=== PATIENT | male | born 1935 | race Caucasian/White ===

== ENCOUNTER → 2016-08-24 | Outpatient (CLI) | payer MEDICARE ==
[~2016-08-24] MED LIST: ALLO100T PO; APIX2.5T PO; ASPI-983 PO; CALC0.253 PO; CARV6.25 PO; CHOL2000 PO; CLOP75TA69 PO; DILT240C90 PO; DOBU250I2 IV; FURO-124 PO; FURO40TA4 PO; FURO80TA83 PO; GABA-490 PO; GLIP10TA13 PO; HYDR-3923 PO; INSU100V5 SQ; ISM60TCR PO; MAGN400T39 PO; MELA5CAP PO; METO-333 PO; MULT-593 PO; NEBU1EAC10 MC; NEBU1EAC2 MC; PAMI30VI8 SQ; PANT40TA3 PO; SUCR1TAB PO
--- OUTSIDE RECORDS SUMMARY | 2016-08-24 15:08 | XMS REPORT | Continuity of Care Document ---
Author Author [facility] Organization [facility] Address Unknown Phone Unavailable Care Team Providers Care Director Insurance Name Role Phone DINORAH DELUCA MD PCP Insurance Providers Payer Name Policy Number Subscriber Name Relationship Wps Medicare [id number] Kunal Lyon 18 Self / Same As Patient [facility] [id number] Kunal Lyon 18 Self / Same As Patient Advance Directives Directive Response Recorded Date/Time Advance Directives No 07/01/16 8:15pm Health Care Power of Apprentice Machinist Outside Y daughter alejandra chau 07/01/16 8:15pm Resuscitation Status Full Code 07/01/16 8:15pm Chief Complaint and Reason for Visit Chief Complaint Respiratory Problems Reason for Visit Heart failure Sepsis Pneumonia Problems Active Problems Medical Problem Onset Date Status Acute on chronic renal failure Unknown Acute Atrial fibrillation with RVR Unknown Acute Chronic obstructive airway disease Unknown Acute Congestive heart failure Unknown Acute Fluid overload Unknown Acute Heart failure Unknown Acute Hypokalemia Unknown Acute Pneumonia Unknown Acute Respiratory failure Unknown Acute Right lower lobe pneumonia Unknown Acute Sepsis Unknown Acute Severe sepsis Unknown Acute Medications Current Home Medications Medication Dose Units Route Directions Days/Qty Instructions Start Date Gabapentin 400 Mg 400 Mg Oral Bedtime 05/02/16 Magnesium Oxide 400 Mg 400 Mg Oral Daily 05/02/16 Pantoprazole Sodium 40 Mg 40 Mg Oral Twice A Day 05/02/16 Allopurinol 100 Mg 200 Mg Oral Daily 05/02/16 Multivitamin With Minerals 1 Each 1 Tab Oral Daily 05/02/16 Melatonin 5 Mg 3 Mg Oral Bedtime as needed for Sleep 05/02/16 Sucralfate 1 Gm 1 Gm Oral Before Meals 05/02/16 Metoprolol Tartrate 25 Mg 50 Mg Oral Twice A Day 60 05/07/16 Aspirin 81 Mg 81 Mg Oral Daily 30 05/07/16 Insulin Lispro 100 Unit/1 Ml Unknown Dose Sub-Q 07/01/16 Carvedilol 6.25 Mg 6.25 Mg Oral Twice A Day 07/01/16 Dobutamine Hcl/D5w 250 Mg/250 Ml Unknown Dose Intraven Continuous 07/01/16 Furosemide 40 Mg 40 Mg Oral Daily 07/01/16 Cholecalciferol (Vitamin D3) 2,000 Unit 2,000 Unit Oral Daily Calcitriol 0.25 Mcg 0.25 Mcg Oral Daily 07/01/16 Clopidogrel Bisulfate 75 Mg 75 Mg Oral Daily 07/01/16 Isosorbide Mononitrate (Imdur) 60 Mg 60 Mg Oral Daily 07/01/16 Hydralazine Hcl 25 Mg 25 Mg Oral Three Times A Day 07/01/16 Furosemide 80 Mg 80 Mg Oral Daily 07/01/16 Past Home Medications Medication Directions Ordered Status Glipizide 10 Mg Tablet, 10 Mg Oral Daily 05/02/16 Discontinued Insulin Determir 1,000 Units/10 Ml Soln, 32 Units Sub-Q Daily 05/02/16 Discontinued Furosemide 40 Mg Tablet, 40 Mg Oral Daily 05/02/16 Discontinued Apixaban 2.5 Mg Tablet, 2.5 Mg Oral Twice A Day 05/07/16 Discontinued Diltiazem Hcl 240 Mg Cap.er.24h, 240 Mg Oral Daily 05/07/16 Discontinued Social History Social History Problem Response Recorded Date/Time Alcohol Use Denies Use 07/01/2016 8:15pm Recreational Drug Use No 07/01/2016 8:15pm Recent Foreign Travel No 07/01/2016 8:15pm Recent Infectious Disease Exposure No 07/01/2016 8:15pm Sexually Transmitted Disease No 07/01/2016 8:15pm HIV/AIDS No 07/01/2016 8:15pm Smoking Status Former Smoker 07/01/2016 8:15pm Type Used Cigarettes 07/01/2016 8:15pm Recent Hopitalizations RELEASED FROM [place] ON 06/28/16 07/01/2016 8:15pm Sexually Transmitted Disease No 07/01/2016 8:15pm Query Response Start Date Stop Date Smoking Status Former Smoker Hospital Discharge Instructions No hospital discharge instructions. Plan of Care Discharge Date 07/01/16 10:50pm Disposition 02 XFER SHT-TRM HOSP Condition at Discharge Critical Prescriptions See Medication Section Referrals DINORAH DELUCA MD - Primary Care Physician Functional Status No functional status results. Allergies, Adverse Reactions, Alerts No known allergies. Immunizations No immunization records. Vital Signs Acute Vital Signs Vital Response Date/Time Temperature (Fahrenheit) 100.7 degrees F (97.6 - 99.5) 07/01/2016 8:52pm Temperature (Calculated Celsius) 38.64508 degrees C (36.4 - 37.5) 07/01/2016 8:52pm Temperature Source Tympanic 07/01/2016 8:52pm Pulse Rate (adult) 123 bpm (60 - 90) 07/01/2016 8:15pm Respiratory Rate 20 bpm (12 - 24) 07/01/2016 8:15pm O2 Sat by Pulse Oximetry 92 % (88 - 100) 07/01/2016 9:07pm Blood Pressure 134/67 mm Hg 07/01/2016 8:15pm Blood Pressure Mean 89 mm Hg 07/01/2016 8:15pm Pain Numeric Pain Scale 0-No Pain 07/01/2016 8:15pm Height (Feet) 5 feet 07/01/2016 8:15pm Height (Inches) 8 inches 07/01/2016 8:15pm Height (Calculated Centimeters) 172.966956 cm 07/01/2016 8:15pm Weight (Pounds) 175 pounds 07/01/2016 8:15pm Weight (Ounces) 0.0 oz 06/10/2016 4:45pm Weight (Calculated Grams) 60703.63 gm 06/10/2016 4:45pm Weight (Calculated Kilograms) 79.510150 kilograms 07/01/2016 8:15pm Calculated BMI 27.4 06/10/2016 4:45pm Capillary Refill Capillary Refill Less Than 3 Seconds 07/01/2016 8:15pm Results Laboratory Results Test Name Result Units Flags Reference Collection Date/Time Result Date/ Time Comments White Blood Count 6.1 10^3/uL 4.3-11.0 06/10/2016 1:21pm 06/10/2016 1: 48pm Red Blood Count 2.82 10^6/uL L 4.35-5.85 06/10/2016 1:pm 06/10/2016 1: 48pm Hemoglobin 6.7 G/DL CL 13.3-17.7 06/10/2016 1:pm 06/10/2016 1:48pm RESULTS CALLED TO TERESA RN AT 'S OFFICE AT 6847. RESULTS READ BACK: YES. Hematocrit 23 % L 40-54 06/10/2016 1:06/10/2016 1:48pm Mean Corpuscular Volume 81 FL 80-99 06/10/2016 1:pm 06/10/2016 1: 48pm Mean Corpuscular Hemoglobin 24 PG L 25-34 06/10/2016 1:pm 06/10/2016 1: 48pm Mean Corpuscular Hemoglobin Concent 29 G/DL L 32-36 06/10/2016 1:pm 1:48pm Red Cell Distribution Width 17.3 % H 10.0-14.5 06/10/2016 1:2015 1:48pm Platelet Count 222 10^3/uL 130-400 06/10/2016 1:06/10/2016 1:48pm Mean Platelet Volume 11.3 FL H 7.4-10.4 06/10/2016 1:pm 06/10/2016 1: 48pm Neutrophils (%) (Auto) 64 % 42-75 06/10/2016 1:06/10/2016 1:48pm Lymphocytes (%) (Auto) 17 % 12-44 06/10/2016 1:06/10/2016 1:48pm Monocytes (%) (Auto) 16 % H 0-12 06/10/2016 1:pm 06/10/2016 1:48pm Eosinophils (%) (Auto) 3 % 0-10 06/10/2016 1:pm 06/10/2016 1:48pm Basophils (%) (Auto) 1 % 0-10 06/10/2016 1:pm 06/10/2016 1:48pm Neutrophils # (Auto) 3.9 X 10^3 1.8-7.8 06/10/2016 1:pm 06/10/2016 1: 48pm Lymphocytes # (Auto) 1.0 X 10^3 1.0-4.0 06/10/2016 1:06/10/2016 1: 48pm Monocytes # (Auto) 1.0 X 10^3 0.0-1.0 06/10/2016 1:21pm 06/10/2016 1: 48pm Eosinophils # (Auto) 0.2 10^3/uL 0.0-0.3 06/10/2016 1:pm 06/10/2016 1 :48pm Basophils # (Auto) 0.1 10^3/uL 0.0-0.1 06/10/2016 1:pm 06/10/2016 1: 48pm Urine Color YELLOW 06/10/2016 1:pm 06/10/2016 1:44pm Urine Clarity SLIGHTLY CLOUDY 06/10/2016 1:pm 06/10/2016 1:44pm Urine pH 6 5-9 06/10/2016 1:pm 06/10/2016 1:44pm Urine Specific [place] 1.020 1.016-1.022 06/10/2016 1:pm 2015 1:44pm Urine Protein NEGATIVE NEGATIVE 06/10/2016 1:pm 06/10/2016 1:44pm Urine Glucose (UA) NEGATIVE NEGATIVE 06/10/2016 1:pm 06/10/2016 1: 44pm Urine RBC (Auto) NEGATIVE NEGATIVE 06/10/2016 1:pm 06/10/2016 1: 44pm Urine Ketones NEGATIVE NEGATIVE 06/10/2016 1:pm 06/10/2016 1:44pm Urine Nitrite NEGATIVE NEGATIVE 06/10/2016 1:pm 06/10/2016 1:44pm Urine Bilirubin NEGATIVE NEGATIVE 06/10/2016 1:pm 06/10/2016 1: 44pm Urine Urobilinogen NORMAL MG/DL NORMAL 06/10/2016 1:pm 06/10/2016 1: 44pm Urine Leukocyte Esterase NEGATIVE NEGATIVE 06/10/2016 1:pm 2015 1:44pm Urine RBC NONE /HPF 06/10/2016 1:pm 06/10/2016 1:44pm Urine WBC NONE /HPF 06/10/2016 1:pm 06/10/2016 1:44pm Urine Bacteria NEGATIVE /HPF 06/10/2016 1:pm 06/10/2016 1:44pm Urine Squamous Epithelial Cells 0-2 /HPF 06/10/2016 1:2015 1:44pm Urine Crystals NONE /LPF 06/10/2016 1:06/10/2016 1:44pm Urine Casts PRESENT /LPF 06/10/2016 1:06/10/2016 1:44pm Urine Hyaline Casts 5-10 /LPF * 06/10/2016 1:06/10/2016 1:44pm Urine Mucus NEGATIVE /LPF 06/10/2016 1:06/10/2016 1:44pm Urine Culture Indicated NO 06/10/2016 1:06/10/2016 1:44pm Urine Protein 14 MG/DL H 6-12 06/10/2016 1:06/10/2016 1:50pm Urine Creatinine 111 MG/DL 30-125 06/10/2016 1:06/10/2016 1:50pm Urine Protein/Creatinine Ratio 0.13 06/10/2016 1:06/10/2016 1: 50pm Sodium Level 139 MMOL/L 135-145 06/10/2016 1:06/10/2016 1:48pm Potassium Level 3.5 MMOL/L L 3.6-5.0 06/10/2016 1:06/10/2016 1:48pm Chloride Level 100 MMOL/L 98-107 06/10/2016 1:06/10/2016 1:48pm Carbon Dioxide Level 29 MMOL/L 21-32 06/10/2016 1:06/10/2016 1: 48pm Anion Gap 10 MMOL/L 5-14 06/10/2016 1:06/10/2016 1:48pm Blood Urea Nitrogen 45 MG/DL H 7-18 06/10/2016 1:06/10/2016 1:48pm Creatinine 2.56 MG/DL H 0.60-1.30 06/10/2016 1:06/10/2016 1:48pm BUN/Creatinine Ratio 18 06/10/2016 1:06/10/2016 1:48pm Estimat Glomerular Filtration Rate 24 06/10/2016 1:06/10/2016 1:48pm GFR INTERPRETIVE DATA UNITS FOR ESTIMATED GFR (eGFR): mL/min/1.73 M2 REFERENCE RANGE FOR ESTIMATED GFR (eGFR) eGFR NORMAL eGFR >60 MODERATELY DECREASED eGFR 30-59 SEVERLY DECREASED eGFR 15-29 KIDNEY FAILURE <15 (OR DIALYSIS) Glucose Level 122 MG/DL H 70-105 06/10/2016 1:21pm 06/10/2016 1:48pm Calcium Level 8.8 MG/DL 8.5-10.1 06/10/2016 1:21pm 06/10/2016 1:48pm Phosphorus Level 3.0 MG/DL 2.3-4.7 06/10/2016 1:21pm 06/10/2016 1:48pm Albumin 3.4 G/DL 3.2-4.5 06/10/2016 1:21pm 06/10/2016 1:48pm Pending Laboratory Results Test Name Collection Date/Time Procedures Procedure Status Date Provider(s) Tracing only of electrocardiogram Active 07/01/16 CANDE CORNEJO MD Encounters Encounter Location Arrival/Admit Date Discharge/Depart Date Attending Provider Departed Emergency Room [facility] 07/01/16 8:11pm 07/01 10:50pm CANDE CORNEJO MD Registered Clinic [facility] 06/22/16 6:38pm DIMPLE ESPINOZA MD Discharged Inpatient (obs) [facility] 06/10/16 4:25pm 9:00pm DINORAH DELUCA MD Registered Clinic [facility] 06/10/16 11:20am GEOFFREY PERALES DO Recent Diagnosis
[2016-08-24 15:18] LABS: BASOPHILS # (AUTO) 0.1 10^3/uL (0.0-0.1); BASOPHILS % (AUTO) 1 % (0-10); EOSINOPHILS # (AUTO) 0.7 10^3/uL (0.0-0.3); EOSINOPHILS % (AUTO) 10 % (0-10); LYMPHOCYTES # (AUTO) 1.3 X 10^3 (1.0-4.0); LYMPHOCYTES % (AUTO) 18 % (12-44); MEAN CORPUSCULAR HEMOGLOBIN 24 PG (25-34); MEAN CORPUSCULAR HGB CONC 29 G/DL (32-36); MEAN CORPUSCULAR VOLUME 82 FL (80-99); MEAN PLATELET VOLUME 9.9 FL (7.4-10.4); MONOCYTES # (AUTO) 0.8 X 10^3 (0.0-1.0); MONOCYTES % (AUTO) 11 % (0-12); NEUTROPHILS # (AUTO) 4.3 X 10^3 (1.8-7.8); NEUTROPHILS % (AUTO) 60 % (42-75); PLATELET COUNT 298 10^3/uL (130-400); RED CELL DISTRIBUTION WIDTH 19.5 % (10.0-14.5); WHITE BLOOD COUNT 7.2 10^3/uL (4.3-11.0)
[2016-08-24 15:19] LABS: BILIRUBIN,URINE NEGATIVE (NEGATIVE); KETONES,URINE NEGATIVE (NEGATIVE); LEUKOCYTE ESTERASE ,URINE 3+ (NEGATIVE); NITRITE,URINE NEGATIVE (NEGATIVE); PH,URINE 5 (5-9); PROTEIN,URINE 2+ (NEGATIVE); UROBILINOGEN,URINE NORMAL (NORMAL)
[2016-08-24 15:28] LABS: WBC,URINE TNTC /HPF
[2016-08-24 15:39] LABS: PROTEIN/CREATININE RATIO 0.51
[2016-08-24 15:39] LABS: ALBUMIN 3.9 G/DL (3.2-4.5); CALCIUM 9.1 MG/DL (8.5-10.1); CREATININE SERUM 2.81 MG/DL (0.60-1.30); PHOSPHORUS 3.2 MG/DL (2.3-4.7); POTASSIUM 3.1 MMOL/L (3.6-5.0); URIC ACID 11.9 MG/DL (2.6-7.2)
[2016-08-25 07:59] LABS: CALCIUM PARA THYROID HORMONE 9.1 mg/dL (8.5-10.5)
== END ==
LOC: HH 15:03
PROVIDERS: ATTEND Internal Medicine Nephrology
DX: N17.8 Other acute kidney failure (principal); J90 Pleural effusion, not elsewhere classified; E11.29 Type 2 diabetes mellitus with other diabetic kidney complication; N18.4 Chronic kidney disease, stage 4 (severe)
CPT/HCPCS: 80069; 81000; 82570; 83970; 84156; 84550; 85025; 87077; 87088; 87186

== ENCOUNTER → 2016-09-08 | Outpatient (CLI) | payer MEDICARE ==
--- OUTSIDE RECORDS SUMMARY | 2016-09-08 16:06 | XMS REPORT | Continuity of Care Document ---
Author Author [facility] Organization [facility] Address Unknown Phone Unavailable Care Team Providers Care Building Trades Instructor Name Role Phone DINORAH DELUCA MD PCP Insurance Providers Payer Name Policy Number Subscriber Name Relationship Wps Medicare [id number] Kunal Lyon 18 Self / Same As Patient [facility] [id number] Kunal Lyon 18 Self / Same As Patient Advance Directives Directive Response Recorded Date/Time Advance Directives No 07/01/16 8:15pm Health Care Power of Finance Vice President Y daughter alejandra chau 07/01/16 8:15pm Resuscitation [...] Cigarettes 07/01/2016 8:15pm Recent Hopitalizations RELEASED FROM [place] ON 06/28/16 07/01/2016 8:15pm Sexually Transmitted Disease [...] - 99.5) 07/01/2016 8:52pm Temperature (Calculated Celsius) 38.75158 degrees C (36.4 - 37.5) 07/01/2016 8:52pm [...] 8 inches 07/01/2016 8:15pm Height (Calculated Centimeters) 172.184357 cm 07/01/2016 8:15pm Weight (Pounds) 175 pounds 07/01/2016 8:15pm Weight (Ounces) 0.0 oz 06/10/2016 4:45pm Weight (Calculated Grams) 40448.63 gm 06/10/2016 4:45pm Weight (Calculated Kilograms) 79.095868 kilograms 07/01/2016 8:15pm Calculated BMI 27.4 06/10/2016 [...] TO TERESA RN AT 'S OFFICE AT 5776. RESULTS READ BACK: YES. Hematocrit 23 % [...] 5-9 06/10/2016 1:pm 06/10/2016 1:44pm Urine Specific [place] 1.020 1.016-1.022 06/10/2016 1:pm 2015 1:44pm Urine [...] Date Attending Provider Departed Emergency Room [facility] 07/01/16 8:11pm 07/01 10:50pm CANDE CORNEJO MD Registered Clinic [facility] 06/22/16 6:38pm DIMPLE ESPINOZA MD Discharged Inpatient (obs) [facility] 06/10/16 4:25pm 9:00pm DINORAH DELUCA MD Registered Clinic [facility] 06/10/16 11:20am GEOFFREY PERALES DO Recent Diagnosis
[2016-09-08 16:07] LABS: BASOPHILS # (AUTO) 0.1 10^3/uL (0.0-0.1); BASOPHILS % (AUTO) 1 % (0-10); EOSINOPHILS # (AUTO) 0.6 10^3/uL (0.0-0.3); EOSINOPHILS % (AUTO) 9 % (0-10); LYMPHOCYTES # (AUTO) 1.2 X 10^3 (1.0-4.0); LYMPHOCYTES % (AUTO) 17 % (12-44); MEAN CORPUSCULAR HEMOGLOBIN 23 PG (25-34); MEAN CORPUSCULAR HGB CONC 29 G/DL (32-36); MEAN CORPUSCULAR VOLUME 81 FL (80-99); MEAN PLATELET VOLUME 10.3 FL (7.4-10.4); MONOCYTES # (AUTO) 0.9 X 10^3 (0.0-1.0); MONOCYTES % (AUTO) 12 % (0-12); NEUTROPHILS # (AUTO) 4.4 X 10^3 (1.8-7.8); NEUTROPHILS % (AUTO) 62 % (42-75); PLATELET COUNT 320 10^3/uL (130-400); RED BLOOD COUNT 3.52 10^6/uL (4.35-5.85); RED CELL DISTRIBUTION WIDTH 17.7 % (10.0-14.5); WHITE BLOOD COUNT 7.2 10^3/uL (4.3-11.0)
[2016-09-08 16:22] LABS: ALBUMIN 3.5 G/DL (3.2-4.5); CALCIUM 8.8 MG/DL (8.5-10.1); CREATININE SERUM 3.11 MG/DL (0.60-1.30); PHOSPHORUS 3.4 MG/DL (2.3-4.7); POTASSIUM 3.7 MMOL/L (3.6-5.0)
== END ==
LOC: HH 16:03
PROVIDERS: ATTEND Internal Medicine Nephrology
DX: N18.3 Chronic kidney disease, stage 3 (moderate) (principal); D64.9 Anemia, unspecified
CPT/HCPCS: 80069; 85025

== ENCOUNTER → 2016-09-15 | Outpatient (CLI) | payer MEDICARE ==
--- OUTSIDE RECORDS SUMMARY | 2016-09-15 16:41 | XMS REPORT | Continuity of Care Document ---
Author Author [facility] Organization [facility] Address Unknown Phone Unavailable Care Team Providers Care Mortgage Closing Clerk Name Role Phone DINORAH DELUCA MD PCP Insurance Providers Payer Name Policy Number Subscriber Name Relationship Wps Medicare [id number] Kunal Lyon 18 Self / Same As Patient [facility] [id number] Kunal Lyon 18 Self / Same As Patient Advance Directives Directive Response Recorded Date/Time Advance Directives No 07/01/16 8:15pm Health Care Power of Dowel Inspector Y daughter alejandra chau 07/01/16 8:15pm Resuscitation [...] Cigarettes 07/01/2016 8:15pm Recent Hopitalizations RELEASED FROM [place] ON 06/28/16 07/01/2016 8:15pm Sexually Transmitted Disease [...] - 99.5) 07/01/2016 8:52pm Temperature (Calculated Celsius) 38.39088 degrees C (36.4 - 37.5) 07/01/2016 8:52pm [...] 8 inches 07/01/2016 8:15pm Height (Calculated Centimeters) 172.224575 cm 07/01/2016 8:15pm Weight (Pounds) 175 pounds 07/01/2016 8:15pm Weight (Ounces) 0.0 oz 06/10/2016 4:45pm Weight (Calculated Grams) 69525.63 gm 06/10/2016 4:45pm Weight (Calculated Kilograms) 79.281452 kilograms 07/01/2016 8:15pm Calculated BMI 27.4 06/10/2016 [...] TO TERESA RN AT 'S OFFICE AT 1149. RESULTS READ BACK: YES. Hematocrit 23 % [...] 5-9 06/10/2016 1:pm 06/10/2016 1:44pm Urine Specific [place] 1.020 1.016-1.022 06/10/2016 1:pm 2015 1:44pm Urine [...] Date Attending Provider Departed Emergency Room [facility] 07/01/16 8:11pm 07/01 10:50pm CANDE CORNEJO MD Registered Clinic [facility] 06/22/16 6:38pm DIMPLE ESPINOZA MD Discharged Inpatient (obs) [facility] 06/10/16 4:25pm 9:00pm DINORAH DELUCA MD Registered Clinic [facility] 06/10/16 11:20am GEOFFREY PERALES DO Recent Diagnosis
[2016-09-15 16:42] LABS: BASOPHILS # (AUTO) 0.1 10^3/uL (0.0-0.1); BASOPHILS % (AUTO) 1 % (0-10); EOSINOPHILS # (AUTO) 0.4 10^3/uL (0.0-0.3); EOSINOPHILS % (AUTO) 6 % (0-10); LYMPHOCYTES # (AUTO) 1.3 X 10^3 (1.0-4.0); LYMPHOCYTES % (AUTO) 20 % (12-44); MEAN CORPUSCULAR HEMOGLOBIN 23 PG (25-34); MEAN CORPUSCULAR HGB CONC 29 G/DL (32-36); MEAN CORPUSCULAR VOLUME 79 FL (80-99); MONOCYTES # (AUTO) 0.9 X 10^3 (0.0-1.0); MONOCYTES % (AUTO) 14 % (0-12); NEUTROPHILS # (AUTO) 3.7 X 10^3 (1.8-7.8); NEUTROPHILS % (AUTO) 58 % (42-75); PLATELET COUNT 265 10^3/uL (130-400); RED BLOOD COUNT 3.63 10^6/uL (4.35-5.85); RED CELL DISTRIBUTION WIDTH 17.4 % (10.0-14.5); WHITE BLOOD COUNT 6.4 10^3/uL (4.3-11.0)
[2016-09-15 16:59] LABS: CALCIUM 8.9 MG/DL (8.5-10.1); CREATININE SERUM 3.27 MG/DL (0.60-1.30); POTASSIUM 3.9 MMOL/L (3.6-5.0)
== END ==
LOC: LABNPT 16:36
PROVIDERS: ATTEND Internal Medicine Cardiovascular Disease
DX: N17.9 Acute kidney failure, unspecified (principal); J90 Pleural effusion, not elsewhere classified; E11.22 Type 2 diabetes mellitus with diabetic chronic kidney disease; N18.4 Chronic kidney disease, stage 4 (severe)
CPT/HCPCS: 80048; 85025

== ENCOUNTER → 2016-09-22 | Outpatient (CLI) | payer MEDICARE ==
--- OUTSIDE RECORDS SUMMARY | 2016-09-22 15:57 | XMS REPORT | Continuity of Care Document ---
Author Author [facility] Organization [facility] Address Unknown Phone Unavailable Care Team Providers Care Risk Consulting Treasury Director Name Role Phone DINORAH DELUCA MD PCP Insurance Providers Payer Name Policy Number Subscriber Name Relationship Wps Medicare [id number] Kunal Lyon 18 Self / Same As Patient [facility] [id number] Kunal Lyon 18 Self / Same As Patient Advance Directives Directive Response Recorded Date/Time Advance Directives No 07/01/16 8:15pm Health Care Power of Wellness Ambassador Y daughter alejandra chau 07/01/16 8:15pm Resuscitation [...] Cigarettes 07/01/2016 8:15pm Recent Hopitalizations RELEASED FROM [place] ON 06/28/16 07/01/2016 8:15pm Sexually Transmitted Disease [...] - 99.5) 07/01/2016 8:52pm Temperature (Calculated Celsius) 38.92491 degrees C (36.4 - 37.5) 07/01/2016 8:52pm [...] 8 inches 07/01/2016 8:15pm Height (Calculated Centimeters) 172.877888 cm 07/01/2016 8:15pm Weight (Pounds) 175 pounds 07/01/2016 8:15pm Weight (Ounces) 0.0 oz 06/10/2016 4:45pm Weight (Calculated Grams) 35879.63 gm 06/10/2016 4:45pm Weight (Calculated Kilograms) 79.005764 kilograms 07/01/2016 8:15pm Calculated BMI 27.4 06/10/2016 [...] TO TERESA RN AT 'S OFFICE AT 2151. RESULTS READ BACK: YES. Hematocrit 23 % [...] 5-9 06/10/2016 1:pm 06/10/2016 1:44pm Urine Specific [place] 1.020 1.016-1.022 06/10/2016 1:pm 2015 1:44pm Urine [...] Date Attending Provider Departed Emergency Room [facility] 07/01/16 8:11pm 07/01 10:50pm CANDE CORNEJO MD Registered Clinic [facility] 06/22/16 6:38pm DIMPLE ESPINOZA MD Discharged Inpatient (obs) [facility] 06/10/16 4:25pm 9:00pm DINORAH DELUCA MD Registered Clinic [facility] 06/10/16 11:20am GEOFFREY PERALES DO Recent Diagnosis
[2016-09-22 16:02] LABS: BASOPHILS # (AUTO) 0.1 10^3/uL (0.0-0.1); BASOPHILS % (AUTO) 2 % (0-10); EOSINOPHILS # (AUTO) 0.5 10^3/uL (0.0-0.3); EOSINOPHILS % (AUTO) 9 % (0-10); LYMPHOCYTES # (AUTO) 1.1 X 10^3 (1.0-4.0); LYMPHOCYTES % (AUTO) 18 % (12-44); MEAN CORPUSCULAR HEMOGLOBIN 23 PG (25-34); MEAN CORPUSCULAR HGB CONC 29 G/DL (32-36); MEAN CORPUSCULAR VOLUME 79 FL (80-99); MEAN PLATELET VOLUME 10.1 FL (7.4-10.4); MONOCYTES # (AUTO) 0.6 X 10^3 (0.0-1.0); MONOCYTES % (AUTO) 10 % (0-12); NEUTROPHILS # (AUTO) 3.8 X 10^3 (1.8-7.8); NEUTROPHILS % (AUTO) 62 % (42-75); PLATELET COUNT 266 10^3/uL (130-400); RED BLOOD COUNT 3.73 10^6/uL (4.35-5.85); RED CELL DISTRIBUTION WIDTH 16.7 % (10.0-14.5)
[2016-09-22 16:24] LABS: ALBUMIN 3.7 G/DL (3.2-4.5); BILIRUBIN,TOTAL 0.3 MG/DL (0.1-1.0); CALCIUM 9.1 MG/DL (8.5-10.1); CREATININE SERUM 3.18 MG/DL (0.60-1.30); POTASSIUM 4.3 MMOL/L (3.6-5.0); TOTAL PROTEIN 5.9 G/DL (6.4-8.2)
== END ==
LOC: LABNPT 15:20
PROVIDERS: ATTEND Family Medicine
DX: I13.0 Hypertensive heart and chronic kidney disease with heart failure and stage 1 through stage 4 chronic kidney disease, or unspecified chronic kidney disease (principal); I50.9 Heart failure, unspecified; N18.9 Chronic kidney disease, unspecified
CPT/HCPCS: 80053; 85025

== ENCOUNTER → 2016-10-04 | Outpatient (CLI) | payer MEDICARE ==
[2016-10-04 16:09] LABS: BASOPHILS # (AUTO) 0.1 10^3/uL (0.0-0.1); BASOPHILS % (AUTO) 2 % (0-10); EOSINOPHILS # (AUTO) 0.3 10^3/uL (0.0-0.3); EOSINOPHILS % (AUTO) 6 % (0-10); LYMPHOCYTES # (AUTO) 1.1 X 10^3 (1.0-4.0); LYMPHOCYTES % (AUTO) 20 % (12-44); MEAN CORPUSCULAR HEMOGLOBIN 22 PG (25-34); MEAN CORPUSCULAR HGB CONC 28 G/DL (32-36); MEAN CORPUSCULAR VOLUME 78 FL (80-99); MEAN PLATELET VOLUME 10.2 FL (7.4-10.4); MONOCYTES # (AUTO) 0.9 X 10^3 (0.0-1.0); MONOCYTES % (AUTO) 18 % (0-12); NEUTROPHILS % (AUTO) 55 % (42-75); PLATELET COUNT 259 10^3/uL (130-400); RED BLOOD COUNT 3.42 10^6/uL (4.35-5.85); RED CELL DISTRIBUTION WIDTH 16.9 % (10.0-14.5); WHITE BLOOD COUNT 5.4 10^3/uL (4.3-11.0)
--- OUTSIDE RECORDS SUMMARY | 2016-10-04 16:09 | XMS REPORT | Continuity of Care Document ---
Author Author [facility] Organization [facility] Address Unknown Phone Unavailable Care Team Providers Care Risk Control Consultant Name Role Phone DINORAH DELUCA MD PCP Insurance Providers Payer Name Policy Number Subscriber Name Relationship Wps Medicare [id number] Kunal Lyon 18 Self / Same As Patient [facility] [id number] Kunal Lyon 18 Self / Same As Patient Advance Directives Directive Response Recorded Date/Time Advance Directives No 07/01/16 8:15pm Health Care Power of Manager Physical Y daughter alejandra chau 07/01/16 8:15pm Resuscitation [...] Cigarettes 07/01/2016 8:15pm Recent Hopitalizations RELEASED FROM [place] ON 06/28/16 07/01/2016 8:15pm Sexually Transmitted Disease [...] - 99.5) 07/01/2016 8:52pm Temperature (Calculated Celsius) 38.66365 degrees C (36.4 - 37.5) 07/01/2016 8:52pm [...] 8 inches 07/01/2016 8:15pm Height (Calculated Centimeters) 172.417476 cm 07/01/2016 8:15pm Weight (Pounds) 175 pounds 07/01/2016 8:15pm Weight (Ounces) 0.0 oz 06/10/2016 4:45pm Weight (Calculated Grams) 12045.63 gm 06/10/2016 4:45pm Weight (Calculated Kilograms) 79.233960 kilograms 07/01/2016 8:15pm Calculated BMI 27.4 06/10/2016 [...] TO TERESA RN AT 'S OFFICE AT 0926. RESULTS READ BACK: YES. Hematocrit 23 % [...] 5-9 06/10/2016 1:pm 06/10/2016 1:44pm Urine Specific [place] 1.020 1.016-1.022 06/10/2016 1:pm 2015 1:44pm Urine [...] Date Attending Provider Departed Emergency Room [facility] 07/01/16 8:11pm 07/01 10:50pm CANDE CORNEJO MD Registered Clinic [facility] 06/22/16 6:38pm DIMPLE ESPINOZA MD Discharged Inpatient (obs) [facility] 06/10/16 4:25pm 9:00pm DINORAH DELUCA MD Registered Clinic [facility] 06/10/16 11:20am GEOFFREY PERALES DO Recent Diagnosis
[2016-10-04 16:26] LABS: ALBUMIN 3.6 G/DL (3.2-4.5); BILIRUBIN,TOTAL 0.3 MG/DL (0.1-1.0); CALCIUM 8.9 MG/DL (8.5-10.1); CREATININE SERUM 3.27 MG/DL (0.60-1.30); POTASSIUM 5.4 MMOL/L (3.6-5.0); TOTAL PROTEIN 5.8 G/DL (6.4-8.2)
== END ==
LOC: HH 16:05
PROVIDERS: ATTEND Internal Medicine Cardiovascular Disease
DX: I50.9 Heart failure, unspecified (principal)
CPT/HCPCS: 80053; 85025

== ENCOUNTER → 2016-10-11 | Outpatient (CLI) | payer MEDICARE ==
--- OUTSIDE RECORDS SUMMARY | 2016-10-11 12:26 | XMS REPORT | Continuity of Care Document ---
Author Author [facility] Organization [facility] Address Unknown Phone Unavailable Care Team Providers Care Kennel Staff Member Name Role Phone DINORAH DELUCA MD PCP Insurance Providers Payer Name Policy Number Subscriber Name Relationship Wps Medicare [id number] Kunal Lyon 18 Self / Same As Patient [facility] [id number] Kunal Lyon 18 Self / Same As Patient Advance Directives Directive Response Recorded Date/Time Advance Directives No 07/01/16 8:15pm Health Care Power of Full Stack Net Developer Y daughter alejandra chau 07/01/16 8:15pm Resuscitation [...] Cigarettes 07/01/2016 8:15pm Recent Hopitalizations RELEASED FROM [place] ON 06/28/16 07/01/2016 8:15pm Sexually Transmitted Disease [...] - 99.5) 07/01/2016 8:52pm Temperature (Calculated Celsius) 38.56082 degrees C (36.4 - 37.5) 07/01/2016 8:52pm [...] 8 inches 07/01/2016 8:15pm Height (Calculated Centimeters) 172.533802 cm 07/01/2016 8:15pm Weight (Pounds) 175 pounds 07/01/2016 8:15pm Weight (Ounces) 0.0 oz 06/10/2016 4:45pm Weight (Calculated Grams) 32182.63 gm 06/10/2016 4:45pm Weight (Calculated Kilograms) 79.094890 kilograms 07/01/2016 8:15pm Calculated BMI 27.4 06/10/2016 [...] TO TERESA RN AT 'S OFFICE AT 3466. RESULTS READ BACK: YES. Hematocrit 23 % [...] 5-9 06/10/2016 1:pm 06/10/2016 1:44pm Urine Specific [place] 1.020 1.016-1.022 06/10/2016 1:pm 2015 1:44pm Urine [...] Date Attending Provider Departed Emergency Room [facility] 07/01/16 8:11pm 07/01 10:50pm CANDE CORNEJO MD Registered Clinic [facility] 06/22/16 6:38pm DIMPLE ESPINOZA MD Discharged Inpatient (obs) [facility] 06/10/16 4:25pm 9:00pm DINORAH DELUCA MD Registered Clinic [facility] 06/10/16 11:20am GEOFFREY PERALES DO Recent Diagnosis
[2016-10-11 12:43] LABS: MEAN PLATELET VOLUME 9.7 FL (7.4-10.4); RED BLOOD COUNT 3.91 10^6/uL (4.35-5.85); RED CELL DISTRIBUTION WIDTH 18.2 % (10.0-14.5); WHITE BLOOD COUNT 5.1 10^3/uL (4.3-11.0)
[2016-10-11 12:50] LABS: ALBUMIN 3.5 G/DL (3.2-4.5); CALCIUM 8.6 MG/DL (8.5-10.1); CREATININE SERUM 2.64 MG/DL (0.60-1.30); PHOSPHORUS 3.4 MG/DL (2.3-4.7); POTASSIUM 4.9 MMOL/L (3.6-5.0)
== END ==
LOC: HH 12:23
PROVIDERS: ATTEND Internal Medicine Nephrology
DX: N18.4 Chronic kidney disease, stage 4 (severe) (principal); D64.9 Anemia, unspecified
CPT/HCPCS: 80069; 85027

== ENCOUNTER → 2016-10-11 | Outpatient (CLI) | payer MEDICARE ==
--- OUTSIDE RECORDS SUMMARY | 2016-10-11 16:48 | XMS REPORT | Continuity of Care Document ---
Author Author [facility] Organization [facility] Address Unknown Phone Unavailable Care Team Providers Care Rn Heart Name Role Phone DINORAH DELUCA MD PCP Insurance Providers Payer Name Policy Number Subscriber Name Relationship Wps Medicare [id number] Kunal Lyon 18 Self / Same As Patient [facility] [id number] Kunal Lyon 18 Self / Same As Patient Advance Directives Directive Response Recorded Date/Time Advance Directives No 07/01/16 8:15pm Health Care Power of Cancer Program Consultant Y daughter alejandra chau 07/01/16 8:15pm Resuscitation [...] Cigarettes 07/01/2016 8:15pm Recent Hopitalizations RELEASED FROM [place] ON 06/28/16 07/01/2016 8:15pm Sexually Transmitted Disease [...] - 99.5) 07/01/2016 8:52pm Temperature (Calculated Celsius) 38.75493 degrees C (36.4 - 37.5) 07/01/2016 8:52pm [...] 8 inches 07/01/2016 8:15pm Height (Calculated Centimeters) 172.981165 cm 07/01/2016 8:15pm Weight (Pounds) 175 pounds 07/01/2016 8:15pm Weight (Ounces) 0.0 oz 06/10/2016 4:45pm Weight (Calculated Grams) 93060.63 gm 06/10/2016 4:45pm Weight (Calculated Kilograms) 79.105475 kilograms 07/01/2016 8:15pm Calculated BMI 27.4 06/10/2016 [...] TO TERESA RN AT 'S OFFICE AT 9042. RESULTS READ BACK: YES. Hematocrit 23 % [...] 5-9 06/10/2016 1:pm 06/10/2016 1:44pm Urine Specific [place] 1.020 1.016-1.022 06/10/2016 1:pm 2015 1:44pm Urine [...] Date Attending Provider Departed Emergency Room [facility] 07/01/16 8:11pm 07/01 10:50pm CANDE CORNEJO MD Registered Clinic [facility] 06/22/16 6:38pm DIMPLE ESPINOZA MD Discharged Inpatient (obs) [facility] 06/10/16 4:25pm 9:00pm DINORAH DELUCA MD Registered Clinic [facility] 06/10/16 11:20am GEOFFREY PERALES DO Recent Diagnosis
== END ==
LOC: HH 16:44
PROVIDERS: ATTEND Family Medicine
DX: K92.1 Melena (principal)
CPT/HCPCS: 82274

== ENCOUNTER → 2016-10-18 | Outpatient (CLI) | payer MEDICARE ==
--- OUTSIDE RECORDS SUMMARY | 2016-10-18 12:32 | XMS REPORT | Continuity of Care Document ---
Author Author [facility] Organization [facility] Address Unknown Phone Unavailable Care Team Providers Care Television Audio Engineer Name Role Phone DINORAH DELUCA MD PCP Insurance Providers Payer Name Policy Number Subscriber Name Relationship Wps Medicare [id number] Kunal Lyon 18 Self / Same As Patient [facility] [id number] Kunal Lyon 18 Self / Same As Patient Advance Directives Directive Response Recorded Date/Time Advance Directives No 07/01/16 8:15pm Health Care Power of Food Analyst Y daughter alejandra chau 07/01/16 8:15pm Resuscitation [...] Cigarettes 07/01/2016 8:15pm Recent Hopitalizations RELEASED FROM [place] ON 06/28/16 07/01/2016 8:15pm Sexually Transmitted Disease [...] - 99.5) 07/01/2016 8:52pm Temperature (Calculated Celsius) 38.74300 degrees C (36.4 - 37.5) 07/01/2016 8:52pm [...] 8 inches 07/01/2016 8:15pm Height (Calculated Centimeters) 172.646783 cm 07/01/2016 8:15pm Weight (Pounds) 175 pounds 07/01/2016 8:15pm Weight (Ounces) 0.0 oz 06/10/2016 4:45pm Weight (Calculated Grams) 95404.63 gm 06/10/2016 4:45pm Weight (Calculated Kilograms) 79.128040 kilograms 07/01/2016 8:15pm Calculated BMI 27.4 06/10/2016 [...] TO TERESA RN AT 'S OFFICE AT 2374. RESULTS READ BACK: YES. Hematocrit 23 % [...] 5-9 06/10/2016 1:pm 06/10/2016 1:44pm Urine Specific [place] 1.020 1.016-1.022 06/10/2016 1:pm 2015 1:44pm Urine [...] Date Attending Provider Departed Emergency Room [facility] 07/01/16 8:11pm 07/01 10:50pm CANDE CORNEJO MD Registered Clinic [facility] 06/22/16 6:38pm DIMPLE ESPINOZA MD Discharged Inpatient (obs) [facility] 06/10/16 4:25pm 9:00pm DINORAH DELUCA MD Registered Clinic [facility] 06/10/16 11:20am GEOFFREY PERALES DO Recent Diagnosis
[2016-10-18 12:50] LABS: BASOPHILS # (AUTO) 0.1 10^3/uL (0.0-0.1); BASOPHILS % (AUTO) 1 % (0-10); EOSINOPHILS # (AUTO) 0.3 10^3/uL (0.0-0.3); EOSINOPHILS % (AUTO) 6 % (0-10); LYMPHOCYTES # (AUTO) 0.9 X 10^3 (1.0-4.0); LYMPHOCYTES % (AUTO) 22 % (12-44); MEAN CORPUSCULAR HEMOGLOBIN 22 PG (25-34); MEAN CORPUSCULAR HGB CONC 28 G/DL (32-36); MEAN CORPUSCULAR VOLUME 79 FL (80-99); MEAN PLATELET VOLUME 10.2 FL (7.4-10.4); MONOCYTES # (AUTO) 0.7 X 10^3 (0.0-1.0); MONOCYTES % (AUTO) 16 % (0-12); NEUTROPHILS # (AUTO) 2.4 X 10^3 (1.8-7.8); NEUTROPHILS % (AUTO) 55 % (42-75); PLATELET COUNT 205 10^3/uL (130-400); RED BLOOD COUNT 3.99 10^6/uL (4.35-5.85); RED CELL DISTRIBUTION WIDTH 18.9 % (10.0-14.5); WHITE BLOOD COUNT 4.3 10^3/uL (4.3-11.0)
[2016-10-18 12:58] LABS: ALBUMIN 3.5 G/DL (3.2-4.5); CALCIUM 8.6 MG/DL (8.5-10.1); CREATININE SERUM 3.11 MG/DL (0.60-1.30); PHOSPHORUS 4.2 MG/DL (2.3-4.7); POTASSIUM 3.7 MMOL/L (3.6-5.0)
== END ==
LOC: HH 11:40
PROVIDERS: ATTEND Internal Medicine Nephrology
DX: D64.9 Anemia, unspecified (principal); N19 Unspecified kidney failure
CPT/HCPCS: 80069; 85025

== ENCOUNTER → 2016-10-25 | Outpatient (CLI) | payer MEDICARE ==
[2016-10-25 11:37] LABS: BASOPHILS # (AUTO) 0.1 10^3/uL (0.0-0.1); BASOPHILS % (AUTO) 1 % (0-10); EOSINOPHILS # (AUTO) 0.3 10^3/uL (0.0-0.3); EOSINOPHILS % (AUTO) 6 % (0-10); LYMPHOCYTES # (AUTO) 0.8 X 10^3 (1.0-4.0); LYMPHOCYTES % (AUTO) 17 % (12-44); MEAN CORPUSCULAR HEMOGLOBIN 22 PG (25-34); MEAN CORPUSCULAR HGB CONC 28 G/DL (32-36); MEAN CORPUSCULAR VOLUME 79 FL (80-99); MEAN PLATELET VOLUME 10.1 FL (7.4-10.4); MONOCYTES # (AUTO) 0.8 X 10^3 (0.0-1.0); MONOCYTES % (AUTO) 17 % (0-12); NEUTROPHILS % (AUTO) 60 % (42-75); PLATELET COUNT 190 10^3/uL (130-400); RED BLOOD COUNT 4.06 10^6/uL (4.35-5.85); RED CELL DISTRIBUTION WIDTH 18.7 % (10.0-14.5)
--- OUTSIDE RECORDS SUMMARY | 2016-10-25 11:37 | XMS REPORT | Continuity of Care Document ---
Author Author [facility] Organization [facility] Address Unknown Phone Unavailable Care Team Providers Care Panel Wirer Name Role Phone DINORAH DELUCA MD PCP Insurance Providers Payer Name Policy Number Subscriber Name Relationship [employer] [id number] Kunal Lyon 18 Self / Same As Patient [facility] [id number] Kunal Lyon 18 Self / Same As Patient Advance Directives Directive Response Recorded Date/Time Advance Directives No 07/01/16 8:15pm Health Care Power of Home Hospice Rn Y daughter alejandra chau 07/01/16 8:15pm Resuscitation [...] Cigarettes 07/01/2016 8:15pm Recent Hopitalizations RELEASED FROM [facility] ON 06/28/16 07/01/2016 8:15pm Sexually Transmitted Disease [...] - 99.5) 07/01/2016 8:52pm Temperature (Calculated Celsius) 38.40911 degrees C (36.4 - 37.5) 07/01/2016 8:52pm [...] 8 inches 07/01/2016 8:15pm Height (Calculated Centimeters) 172.653787 cm 07/01/2016 8:15pm Weight (Pounds) 175 pounds 07/01/2016 8:15pm Weight (Ounces) 0.0 oz 06/10/2016 4:45pm Weight (Calculated Grams) 45305.63 gm 06/10/2016 4:45pm Weight (Calculated Kilograms) 79.167199 kilograms 07/01/2016 8:15pm Calculated BMI 27.4 06/10/2016 [...] TO TERESA RN AT 'S OFFICE AT 4174. RESULTS READ BACK: YES. Hematocrit 23 % [...] 5-9 06/10/2016 1:pm 06/10/2016 1:44pm Urine Specific [place] 1.020 1.016-1.022 06/10/2016 1:pm 2015 1:44pm Urine [...] Date Attending Provider Departed Emergency Room [facility] 07/01/16 8:11pm 07/01 10:50pm CANDE CORNEJO MD Registered Clinic [facility] 06/22/16 6:38pm DIMPLE ESPINOZA MD Discharged Inpatient (obs) [facility] 06/10/16 4:25pm 9:00pm DINORAH DELUCA MD Registered Clinic [facility] 06/10/16 11:20am GEOFFREY PERALES DO Recent Diagnosis
[2016-10-25 11:46] LABS: ALBUMIN 3.4 G/DL (3.2-4.5); CALCIUM 8.9 MG/DL (8.5-10.1); CREATININE SERUM 2.79 MG/DL (0.60-1.30); PHOSPHORUS 3.3 MG/DL (2.3-4.7); POTASSIUM 3.4 MMOL/L (3.6-5.0)
== END ==
LOC: HH 11:34
PROVIDERS: ATTEND Internal Medicine Nephrology
DX: D64.9 Anemia, unspecified (principal); N19 Unspecified kidney failure
CPT/HCPCS: 80069; 85025

== ENCOUNTER → 2016-11-03 | Outpatient (CLI) | payer MEDICARE ==
--- OUTSIDE RECORDS SUMMARY | 2016-11-03 14:48 | XMS REPORT | Continuity of Care Document ---
Author Author [facility] Organization [facility] Address Unknown Phone Unavailable Care Team Providers Care Ophthalmology Assistant Name Role Phone DINORAH DELUCA MD PCP Insurance Providers Payer Name Policy Number Subscriber Name Relationship [employer] [id number] Kunal Lyon 18 Self / Same As Patient [facility] [id number] Kunal Lyon 18 Self / Same As Patient Advance Directives Directive Response Recorded Date/Time Advance Directives No 07/01/16 8:15pm Health Care Power of Support Technician Y daughter alejandra chau 07/01/16 8:15pm Resuscitation [...] Cigarettes 07/01/2016 8:15pm Recent Hopitalizations RELEASED FROM [place] ON 06/28/16 07/01/2016 8:15pm Sexually Transmitted Disease [...] - 99.5) 07/01/2016 8:52pm Temperature (Calculated Celsius) 38.73882 degrees C (36.4 - 37.5) 07/01/2016 8:52pm [...] 8 inches 07/01/2016 8:15pm Height (Calculated Centimeters) 172.495511 cm 07/01/2016 8:15pm Weight (Pounds) 175 pounds 07/01/2016 8:15pm Weight (Ounces) 0.0 oz 06/10/2016 4:45pm Weight (Calculated Grams) 69950.63 gm 06/10/2016 4:45pm Weight (Calculated Kilograms) 79.056880 kilograms 07/01/2016 8:15pm Calculated BMI 27.4 06/10/2016 [...] TO TERESA RN AT 'S OFFICE AT 9687. RESULTS READ BACK: YES. Hematocrit 23 % [...] 5-9 06/10/2016 1:pm 06/10/2016 1:44pm Urine Specific [place] 1.020 1.016-1.022 06/10/2016 1:pm 2015 1:44pm Urine [...] Date Attending Provider Departed Emergency Room [facility] 07/01/16 8:11pm 07/01 10:50pm CANDE CORNEJO MD Registered Clinic [facility] 06/22/16 6:38pm DIMPLE ESPINOZA MD Discharged Inpatient (obs) [facility] 06/10/16 4:25pm 9:00pm DINORAH DELUCA MD Registered Clinic [facility] 06/10/16 11:20am GEOFFREY PERALES DO Recent Diagnosis
[2016-11-03 14:50] LABS: BASOPHILS # (AUTO) 0.1 10^3/uL (0.0-0.1); BASOPHILS % (AUTO) 1 % (0-10); EOSINOPHILS # (AUTO) 0.4 10^3/uL (0.0-0.3); EOSINOPHILS % (AUTO) 7 % (0-10); LYMPHOCYTES # (AUTO) 1.4 X 10^3 (1.0-4.0); LYMPHOCYTES % (AUTO) 23 % (12-44); MEAN CORPUSCULAR HEMOGLOBIN 22 PG (25-34); MEAN CORPUSCULAR HGB CONC 28 G/DL (32-36); MEAN CORPUSCULAR VOLUME 78 FL (80-99); MEAN PLATELET VOLUME 9.9 FL (7.4-10.4); MONOCYTES # (AUTO) 0.8 X 10^3 (0.0-1.0); MONOCYTES % (AUTO) 14 % (0-12); NEUTROPHILS # (AUTO) 3.3 X 10^3 (1.8-7.8); NEUTROPHILS % (AUTO) 56 % (42-75); PLATELET COUNT 196 10^3/uL (130-400); RED BLOOD COUNT 4.25 10^6/uL (4.35-5.85); RED CELL DISTRIBUTION WIDTH 19.8 % (10.0-14.5); WHITE BLOOD COUNT 5.9 10^3/uL (4.3-11.0)
[2016-11-03 15:07] LABS: ALBUMIN 3.7 G/DL (3.2-4.5); CALCIUM 8.8 MG/DL (8.5-10.1); CREATININE SERUM 3.06 MG/DL (0.60-1.30); PHOSPHORUS 3.5 MG/DL (2.3-4.7); POTASSIUM 2.9 MMOL/L (3.6-5.0)
== END ==
LOC: HH 14:43
PROVIDERS: ATTEND Internal Medicine Nephrology
DX: N18.4 Chronic kidney disease, stage 4 (severe) (principal)
CPT/HCPCS: 80069; 85025

== ENCOUNTER → 2016-11-10 | Outpatient (CLI) | payer MEDICARE ==
[2016-11-10 15:22] LABS: BASOPHILS # (AUTO) 0.1 10^3/uL (0.0-0.1); BASOPHILS % (AUTO) 1 % (0-10); EOSINOPHILS # (AUTO) 0.4 10^3/uL (0.0-0.3); EOSINOPHILS % (AUTO) 7 % (0-10); LYMPHOCYTES # (AUTO) 1.1 X 10^3 (1.0-4.0); LYMPHOCYTES % (AUTO) 20 % (12-44); MEAN CORPUSCULAR HEMOGLOBIN 23 PG (25-34); MEAN CORPUSCULAR HGB CONC 29 G/DL (32-36); MEAN CORPUSCULAR VOLUME 80 FL (80-99); MEAN PLATELET VOLUME 10.1 FL (7.4-10.4); MONOCYTES # (AUTO) 0.7 X 10^3 (0.0-1.0); MONOCYTES % (AUTO) 12 % (0-12); NEUTROPHILS # (AUTO) 3.2 X 10^3 (1.8-7.8); NEUTROPHILS % (AUTO) 60 % (42-75); PLATELET COUNT 225 10^3/uL (130-400); RED BLOOD COUNT 3.82 10^6/uL (4.35-5.85); RED CELL DISTRIBUTION WIDTH 20.2 % (10.0-14.5); WHITE BLOOD COUNT 5.4 10^3/uL (4.3-11.0)
[2016-11-10 15:44] LABS: ALBUMIN 3.5 G/DL (3.2-4.5); CALCIUM 8.6 MG/DL (8.5-10.1); CREATININE SERUM 2.99 MG/DL (0.60-1.30); MAGNESIUM 1.9 MG/DL (1.8-2.4); PHOSPHORUS 3.5 MG/DL (2.3-4.7); POTASSIUM 3.1 MMOL/L (3.6-5.0)
== END ==
LOC: HH 15:15
PROVIDERS: ATTEND Internal Medicine Nephrology
DX: N18.4 Chronic kidney disease, stage 4 (severe) (principal); E87.6 Hypokalemia; D64.9 Anemia, unspecified
CPT/HCPCS: 80069; 83735; 85025

== ENCOUNTER → 2016-11-16 | Outpatient (CLI) | payer MEDICARE ==
[2016-11-16 17:40] LABS: BILIRUBIN,URINE NEGATIVE (NEGATIVE); KETONES,URINE NEGATIVE (NEGATIVE); LEUKOCYTE ESTERASE ,URINE 3+ (NEGATIVE); NITRITE,URINE NEGATIVE (NEGATIVE); PH,URINE 7 (5-9); PROTEIN,URINE 3+ (NEGATIVE); UROBILINOGEN,URINE NORMAL (NORMAL)
[2016-11-16 17:56] LABS: WBC,URINE TNTC /HPF
== END ==
LOC: HH 17:32
PROVIDERS: ATTEND Family Medicine
DX: N18.9 Chronic kidney disease, unspecified (principal)
CPT/HCPCS: 81000; 87088

== ENCOUNTER → 2016-11-29 | Outpatient (CLI) | payer MEDICARE ==
[2016-11-29 14:56] LABS: BASOPHILS # (AUTO) 0.1 10^3/uL (0.0-0.1); BASOPHILS % (AUTO) 1 % (0-10); EOSINOPHILS # (AUTO) 0.4 10^3/uL (0.0-0.3); EOSINOPHILS % (AUTO) 6 % (0-10); LYMPHOCYTES # (AUTO) 1.4 X 10^3 (1.0-4.0); LYMPHOCYTES % (AUTO) 20 % (12-44); MEAN CORPUSCULAR HEMOGLOBIN 22 PG (25-34); MEAN CORPUSCULAR HGB CONC 27 G/DL (32-36); MEAN CORPUSCULAR VOLUME 79 FL (80-99); MEAN PLATELET VOLUME 9.9 FL (7.4-10.4); MONOCYTES # (AUTO) 0.7 X 10^3 (0.0-1.0); MONOCYTES % (AUTO) 10 % (0-12); NEUTROPHILS # (AUTO) 4.3 X 10^3 (1.8-7.8); NEUTROPHILS % (AUTO) 62 % (42-75); PLATELET COUNT 190 10^3/uL (130-400); RED BLOOD COUNT 4.35 10^6/uL (4.35-5.85); RED CELL DISTRIBUTION WIDTH 18.9 % (10.0-14.5); WHITE BLOOD COUNT 6.9 10^3/uL (4.3-11.0)
[2016-11-29 15:05] LABS: ALBUMIN 3.3 G/DL (3.2-4.5); CALCIUM 8.4 MG/DL (8.5-10.1); CREATININE SERUM 2.51 MG/DL (0.60-1.30); PHOSPHORUS 2.5 MG/DL (2.3-4.7); POTASSIUM 3.5 MMOL/L (3.6-5.0)
== END ==
LOC: HH 13:30
PROVIDERS: ATTEND Internal Medicine Nephrology
DX: N18.4 Chronic kidney disease, stage 4 (severe) (principal)
CPT/HCPCS: 80069; 85025

== ENCOUNTER → 2016-12-13 | Outpatient (CLI) | payer MEDICARE ==
[2016-12-13 14:08] LABS: ALBUMIN 3.7 G/DL (3.2-4.5); CREATININE SERUM 2.56 MG/DL (0.60-1.30); PHOSPHORUS 3.3 MG/DL (2.3-4.7); POTASSIUM 3.2 MMOL/L (3.6-5.0)
== END ==
LOC: HH 13:25
PROVIDERS: ATTEND Internal Medicine Nephrology
DX: N18.4 Chronic kidney disease, stage 4 (severe) (principal)
CPT/HCPCS: 80069

== ENCOUNTER → 2016-12-22 | Outpatient (CLI) | payer MEDICARE ==
[2016-12-22 12:42] LABS: MEAN PLATELET VOLUME 10.1 FL (7.4-10.4); RED BLOOD COUNT 4.12 10^6/uL (4.35-5.85); RED CELL DISTRIBUTION WIDTH 20.1 % (10.0-14.5); WHITE BLOOD COUNT 6.4 10^3/uL (4.3-11.0)
[2016-12-22 13:09] LABS: ALBUMIN 3.7 G/DL (3.2-4.5); BILIRUBIN,TOTAL 0.5 MG/DL (0.1-1.0); CALCIUM 9.3 MG/DL (8.5-10.1); CREATININE SERUM 2.92 MG/DL (0.60-1.30); MAGNESIUM 1.8 MG/DL (1.8-2.4); POTASSIUM 3.6 MMOL/L (3.6-5.0); TOTAL PROTEIN 5.8 G/DL (6.4-8.2)
== END ==
LOC: HH 12:37
PROVIDERS: ATTEND Internal Medicine Cardiovascular Disease
DX: N18.4 Chronic kidney disease, stage 4 (severe) (principal)
CPT/HCPCS: 80053; 83735; 85027

== ENCOUNTER → 2017-01-10 | Outpatient (CLI) | payer MEDICARE ==
[2017-01-10 12:19] LABS: BASOPHILS # (AUTO) 0.1 10^3/uL (0.0-0.1); BASOPHILS % (AUTO) 1 % (0-10); EOSINOPHILS # (AUTO) 0.1 10^3/uL (0.0-0.3); EOSINOPHILS % (AUTO) 2 % (0-10); LYMPHOCYTES # (AUTO) 1.3 X 10^3 (1.0-4.0); LYMPHOCYTES % (AUTO) 20 % (12-44); MEAN CORPUSCULAR HEMOGLOBIN 21 PG (25-34); MEAN CORPUSCULAR HGB CONC 28 G/DL (32-36); MEAN CORPUSCULAR VOLUME 77 FL (80-99); MONOCYTES # (AUTO) 0.9 X 10^3 (0.0-1.0); MONOCYTES % (AUTO) 14 % (0-12); NEUTROPHILS # (AUTO) 4.3 X 10^3 (1.8-7.8); NEUTROPHILS % (AUTO) 64 % (42-75); RED BLOOD COUNT 3.79 10^6/uL (4.35-5.85); RED CELL DISTRIBUTION WIDTH 17.4 % (10.0-14.5); WHITE BLOOD COUNT 6.6 10^3/uL (4.3-11.0)
[2017-01-10 12:24] LABS: PLATELET COUNT 197 10^3/uL (130-400)
== END ==
LOC: HH 12:07
PROVIDERS: ATTEND Internal Medicine Nephrology
DX: D63.1 Anemia in chronic kidney disease (principal); N18.9 Chronic kidney disease, unspecified
CPT/HCPCS: 85025